=== PATIENT | female | born 1935 | race African-American/Black ===

== ENCOUNTER 2017-02-06 15:25 | Observation (INO) | payer MEDICARE, OTHER ==
[~2017-02-06] VITALS: Ht 172.7 cm; Wt 73.0 kg
[~2017-02-06 15:25] MED LIST: CARV12.545 PO; FLUT10SP INH; FURO40TA5 PO; LOSA50TA20 PO; SITA100T6 PO
[2017-02-06] MEDS ORDERED: FUROSEMIDE 40MG/4ML VIAL IV STA (17:21)
[2017-02-06 18:02] LABS: BASOPHILS % 1.1 % (0.0-2.0); EOSINOPHILS % 0.8 % (0.0-5.0); HEMATOCRIT. 42.6 % (36.0-48.0); HEMOGLOBIN. 13.9 g/dL (12.0-16.0); LYMPHOCYTES % 22.9 % (20.0-50.0); MEAN CORPUSCULAR HEMOGLOBIN 28.5 pg (28.0-32.0); MEAN CORPUSCULAR VOLUME 87.3 fL (81.0-99.0); MEAN PLATELET VOLUME 9.7 fl (7.4-10.4); MONOCYTES % 11.8 % (2.0-8.0); NEUTROPHILS % 63.4 % (40.0-76.0); PLATELET 140 x1000/uL (130-400); RED BLOOD CELL COUNT 4.89 mill/uL (4.2-5.4); RED CELL DISTRIBUTION WIDTH 16.1 % (11.6-14.6)
[2017-02-06 18:04] LABS: CHLORIDE 106 mEq/L (98-107)
[2017-02-06 18:05] LABS: INR 1.3; PROTHROMBIN TIME 13.9 sec
[2017-02-06 18:07] LABS: CARBON DIOXIDE 27 mEq/L (21-32)
[2017-02-06 18:15] LABS: TROPONIN I 0.06 ng/mL (0.00-0.04)
[2017-02-06] MEDS ORDERED: LEVOFLOXACIN 750MG PREMIX 150 ML IV ONE (18:30)
[2017-02-06 19:15] LABS: CLARITY URINE CLEAR (CLEAR); COLOR URINE DARK YELLOW (YELLOW); GLUCOSE URINE NEGATIVE (NEGATIVE); KETONES URINE NEGATIVE (NEGATIVE); LEUKOCYTE ESTERASE URINE NEGATIVE (NEGATIVE); NITRITE URINE NEGATIVE (NEGATIVE); OCCULT BLOOD URINE NEGATIVE (NEGATIVE); PH URINE 6.5 (4.5-8.0); PROTEIN URINE 2+ (NEGATIVE); SPECIFIC GRAVITY URINE 1.016 (1.005-1.030)
[2017-02-06] MEDS ORDERED: SPIR25TA4 PO (22:19)
[2017-02-06] MEDS ORDERED: ISOS1TAB PO (22:19)
[2017-02-06] MEDS ORDERED: ROSU20TA PO (22:19)
[2017-02-06] MEDS ORDERED: SACU1TAB7 PO (22:19)
[2017-02-06 22:20] VITALS: BP 119/83
[2017-02-06 22:33] VITALS: BP 119/83
[2017-02-06] MEDS ORDERED: POTASSIUM CHLORIDE 20MEQ TABLET SR PO NR (23:30)
[2017-02-06] MEDS ORDERED: ACETAMINOPHEN 325MG TABLET PO PRN (23:30)
[2017-02-06] MEDS ORDERED: TEMAZEPAM 15MG CAPSULE PO PRN (23:30)
[2017-02-07 00:05] VITALS: BP 127/80
[2017-02-07 04:00] VITALS: BP 123/84
[2017-02-07] MEDS ORDERED: FUROSEMIDE 40MG/4ML VIAL IVP SCH (06:30)
[2017-02-07 06:33] LABS: BASOPHILS % 1.2 % (0.0-2.0); EOSINOPHILS % 0.8 % (0.0-5.0); HEMATOCRIT. 42.3 % (36.0-48.0); LYMPHOCYTES % 19.3 % (20.0-50.0); MEAN CORPUSCULAR HEMOGLOBIN 28.8 pg (28.0-32.0); MEAN CORPUSCULAR VOLUME 86.8 fL (81.0-99.0); MEAN PLATELET VOLUME 9.9 fl (7.4-10.4); MONOCYTES % 10.5 % (2.0-8.0); NEUTROPHILS % 68.2 % (40.0-76.0); PLATELET 159 x1000/uL (130-400); RED BLOOD CELL COUNT 4.87 mill/uL (4.2-5.4); RED CELL DISTRIBUTION WIDTH 16.4 % (11.6-14.6)
[2017-02-07 08:00] VITALS: BP_SYST 111; BP_SYST 117; BP_DIAS 70; BP_DIAS 77
[2017-02-07] MEDS: SPIRONOLACTONE 25MG TABLET PO SCH (08:30)
[2017-02-07] MEDS: LINAGLIPTIN 5MG TABLET PO SCH (08:31)
[2017-02-07] MEDS: ENOXAPARIN 30MG/0.3ML SYR SUBCUT SCH (08:33)
[2017-02-07] MEDS ORDERED: MEDICATION NOT ON FORMULARY EA (Sitagliptin Phosphate (Januvia) 100 MG) PO SCH (09:00)
[2017-02-07] MEDS ORDERED: MEDICATION NOT ON FORMULARY EA (Rosuvastatin Calcium (Crestor) 20 MG) PO SCH (09:00)
[2017-02-07] MEDS: CARVEDILOL 12.5MG TABLET PO SCH ×2 (10:50→21:21)
[2017-02-07] MEDS: ISOSORB DINIT/HYDRALAZINE HCL 20/37.5MG TABLET PO SCH ×2 (10:51→21:21)
[2017-02-07 12:00] VITALS: BP 107/69
[2017-02-07] MEDS: FUROSEMIDE 40MG/4ML VIAL IVP SCH (17:59)
[2017-02-07 20:00] VITALS: BP 124/88
[2017-02-07] MEDS ORDERED: ATORVASTATIN CALCIUM 40MG TABLET PO SCH (21:00)
[2017-02-07] MEDS: BUDESONIDE 0.5MG/2ML NEB HHN SCH (21:45)
[2017-02-08] VITALS: BP 108/91
[2017-02-08 04:00] VITALS: BP 109/67
[2017-02-08] MEDS: FUROSEMIDE 40MG/4ML VIAL IVP SCH (06:12)
[2017-02-08 08:00] VITALS: BP 106/78
[2017-02-08] MEDS: SPIRONOLACTONE 25MG TABLET PO SCH (08:27)
[2017-02-08] MEDS: CARVEDILOL 12.5MG TABLET PO SCH (08:28)
[2017-02-08] MEDS: ISOSORB DINIT/HYDRALAZINE HCL 20/37.5MG TABLET PO SCH (08:29)
[2017-02-08] MEDS: BUDESONIDE 0.5MG/2ML NEB HHN SCH (08:36)
[2017-02-08] MEDS: LINAGLIPTIN 5MG TABLET PO SCH (08:56)
[2017-02-08] MEDS: ENOXAPARIN 30MG/0.3ML SYR SUBCUT SCH (08:57)
[2017-02-08 12:00] VITALS: BP 115/89
[2017-02-08] MEDS ORDERED: POTASSIUM CHLORIDE 20MEQ TABLET SR PO NR (13:00)
[2017-02-08 15:16] VITALS: BP 115/89
== END 2017-02-08 16:05 | disposition home or self-care (01) ==
LOC: ER 18:59 → 7WST 19:00 → INTOOBSV 19:00
PROVIDERS: ADMIT Internal Medicine; ATTEND Internal Medicine
DX: I50.23 Acute on chronic systolic (congestive) heart failure (principal); E11.22 Type 2 diabetes mellitus with diabetic chronic kidney disease; I13.0 Hypertensive heart and chronic kidney disease with heart failure and stage 1 through stage 4 chronic kidney disease, or unspecified chronic kidney disease; N18.9 Chronic kidney disease, unspecified; I42.9 Cardiomyopathy, unspecified
CPT/HCPCS: 36415; 71010; 80048; 80053; 80061; 81001; 83605; 83690; 83735; 83880; 84484; 85025; 85610; 87040; 87086; 93005; 94640; 94664; 96365; 96372; 96375; 96376; 99285; G0378; J1650; J1940; J1956; J7626

== ENCOUNTER 2018-11-07 19:57 | Inpatient (IN) | payer OTHER ==
[~2018-11-07] VITALS: Ht 167.6 cm; Wt 92.5 kg
[~2018-11-07 19:57] MED LIST changes: +ISOS1TAB PO; +ROSU20TA PO; +SACU1TAB7 PO; +SITA100T11 PO; -SITA100T6 PO; +SPIR25TA6 PO
[2018-11-07] MEDS ORDERED: SODIUM CHLORIDE 0.9% 1,000 ML IV ONE ×2 (20:13→21:45)
[2018-11-07] MEDS ORDERED: PIPERACILLIN/TAZ 3.375G PREMIX 50 ML IV ONE (22:00)
[2018-11-07] MEDS ORDERED: SODIUM CHLORIDE 0.9% 100 ML IV ONE (22:00)
[2018-11-07] MEDS ORDERED: VANCOMYCIN 1 G PREMIX 200 ML IV ONE (22:00)
[2018-11-07 22:04] LABS: CHLORIDE 105 mEq/L (98-107); HEMATOCRIT. 37.6 % (36.0-48.0); HEMOGLOBIN. 11.8 g/dL (12.0-16.0); MEAN CORPUSCULAR HEMOGLOBIN 26.1 pg (28.0-32.0); MEAN CORPUSCULAR VOLUME 82.9 fL (81.0-99.0); MEAN PLATELET VOLUME 9.5 fl (7.4-10.4); PLATELET 150 x1000/uL (130-400); RED BLOOD CELL COUNT 4.54 mill/uL (4.2-5.4); RED CELL DISTRIBUTION WIDTH 20.9 % (11.6-14.6)
[2018-11-07 22:06] LABS: INR 1.3; PROTHROMBIN TIME 12.7 sec (9.1-11.1)
[2018-11-07 22:32] LABS: PLATELET ESTIMATE NORMAL
[2018-11-07] MEDS ORDERED: ASPIRIN 325MG EC TABLET PO ONE (23:00)
[2018-11-07] MEDS ORDERED: DOBUTAMINE HCL IN DEXTROSE 5 % 250 ML IV STA (23:27)
[2018-11-07] MEDS ORDERED: DOBUTAMINE 250MG PREMIX 250 ML IV ONE (23:45)
[2018-11-07] MEDS ORDERED: ENOXAPARIN 80MG/0.8ML SYR SUBCUT NR (23:45)
[2018-11-08] VITALS (78 sets, daily range): BP systolic 30–204; BP diastolic 0–104
[2018-11-08 01:00] LABS: CLARITY URINE TURBID (CLEAR); COLOR URINE DARK YELLOW (YELLOW); KETONES URINE 1+ (NEGATIVE); LEUKOCYTE ESTERASE URINE TRACE (NEGATIVE); NITRITE URINE NEGATIVE (NEGATIVE); OCCULT BLOOD URINE NEGATIVE (NEGATIVE); PROTEIN URINE 2+ (NEGATIVE); SPECIFIC GRAVITY URINE 1.021 (1.005-1.030)
[2018-11-08] MEDS ORDERED: DOBUTAMINE 250MG PREMIX 250 ML IV ONE ×2 (01:45→04:45)
[2018-11-08] MEDS ORDERED: LEVOFLOXACIN 500MG PREMIX 100 ML IV SCH ×3 (03:15→04:00)
[2018-11-08] MEDS ORDERED: IPRATROPIUM/ALBUTEROL 0.5-3(2.5)MG/3ML NEB INH PRN (03:15)
[2018-11-08] MEDS ORDERED: SODIUM CHLORIDE 0.9% 1,000 ML IV ONE (03:15)
[2018-11-08] MEDS ORDERED: CLOPIDOGREL 75MG TABLET PO SCH (03:15)
[2018-11-08] MEDS ORDERED: ENOXAPARIN 40MG/0.4ML SYR SUBCUT SCH (03:15)
[2018-11-08] MEDS ORDERED: ACETAMINOPHEN 325MG TABLET PO PRN ×2 (03:15→09:00)
[2018-11-08] MEDS ORDERED: ONDANSETRON HCL 4MG/2ML INJ IV PRN ×2 (03:15→09:00)
[2018-11-08] MEDS ORDERED: DOBUTAMINE 250MG PREMIX 250 ML IV SCH (04:45)
[2018-11-08 05:37] LABS: HEMATOCRIT. 33.5 % (36.0-48.0); HEMOGLOBIN. 10.7 g/dL (12.0-16.0); MEAN CORPUSCULAR HEMOGLOBIN 26.1 pg (28.0-32.0); MEAN CORPUSCULAR VOLUME 82.1 fL (81.0-99.0); MEAN PLATELET VOLUME 9.9 fl (7.4-10.4); PLATELET 136 x1000/uL (130-400); RED BLOOD CELL COUNT 4.08 mill/uL (4.2-5.4); RED CELL DISTRIBUTION WIDTH 19.7 % (11.6-14.6)
[2018-11-08 06:34] LABS: PLATELET ESTIMATE NORMAL
[2018-11-08] MEDS ORDERED: INSULIN REGULAR (HUMULIN R) 300UNITS/3ML SUBCUT ONE (07:09)
[2018-11-08 07:14] LABS: BG BASE EXCESS -6.5 mmol/L (-2.0-2.0); BG CARBOXYHEMOGLOBIN 0.3 % (0.5-1.5); BG DEOXYHEMOGLOBIN 3.4 % (0.0-5.0); BG FRACTION INSPIRED OXYGEN 38; BG METHEMOGLOBIN 0.4 % (0.0-1.5); BG OXYGEN SATURATION 96.6 % (92.0-98.5); BG OXYHEMOGLOBIN 95.9 % (94.0-97.0); BG PCO2 32.3 mmHg (35.0-45.0); BG PH 7.363 (7.350-7.450); BG PO2 101.7 mmHg (75.0-100.0); BG SAMPLE SITE RIGHT BRACHIAL; BG TOTAL HEMOGLOBIN 11.5 g/dL (12.0-18.0); BG VENT MODE NASAL CANNULA
[2018-11-08] MEDS ORDERED: IOHEXOL-300 100 ML BOTTLE ONE (07:14)
[2018-11-08] MEDS ORDERED: IODIXANOL 320MG/ML 100 ML BOTTLE IV ONE (07:14)
[2018-11-08] MEDS ORDERED: LIDOCAINE HCL 1% 20ML VIAL (Pyxis) INJ ONE ×3 (07:14→11:45)
[2018-11-08] MEDS ORDERED: INSULIN REGULAR (HUMULIN R) UD 100 UNITS/ML SYR SUBCUT NR (07:31)
[2018-11-08] MEDS ORDERED: DOPAMINE 400MG/250ML PREMIX 250 ML IV ONE ×2 (07:38→10:25)
[2018-11-08] MEDS ORDERED: SODIUM BICARBONATE 8.4% 1 MEQ/ML 50ML SYR IV ONE (08:03)
[2018-11-08] MEDS ORDERED: PHENYLEPHRINE 10 MG in DEXTROSE 5% WATER 250 ML IV PRN (08:15)
[2018-11-08] MEDS ORDERED: CEFAZOLIN 1000MG PREMIX 50 ML IV ONE (08:56)
[2018-11-08] MEDS ORDERED: CLOPIDOGREL 75MG TABLET ONE (09:00)
[2018-11-08] MEDS ORDERED: ATROPINE SULFATE 1MG/10ML SYR IV PRN (09:00)
[2018-11-08] MEDS ORDERED: HEPARIN 25,000 UNITS PREMIX 500 ML IV SCH (09:30)
[2018-11-08] MEDS ORDERED: HEPARIN 5000 UNITS/ML VIAL IV PRN ×2 (11:00)
[2018-11-08] MEDS ORDERED: HEPARIN 25,000 UNITS PREMIX 500 ML IV PRN ×2 (11:15→12:00)
[2018-11-08] MEDS ORDERED: HEPARIN 5000 UNITS/ML VIAL IV SCH (11:15)
[2018-11-08] MEDS: PHENYLEPHRINE 40 MG in DEXTROSE 5% WATER 250 ML IV PRN ×2 (11:43→15:26)
[2018-11-08] MEDS ORDERED: INSULIN GLARGINE UD 100 UNITS/ML SYR SUBCUT NR (11:45)
[2018-11-08] MEDS ORDERED: DOPAMINE 400MG/250ML PREMIX 250 ML IV PRN ×3 (12:15→16:15)
[2018-11-08] MEDS: INSULIN LISPRO 100 UNITS/ML SUBCUT SCH ×3 (12:25→21:00)
[2018-11-08] MEDS: BLOOD SUGAR DIAGNOSTIC STRIP TEST SCH ×3 (12:26→21:43)
[2018-11-08] MEDS ORDERED: PIPERACILLIN/TAZ 2.25G PREMIX 50 ML IV SCH (12:30)
[2018-11-08] MEDS: LINAGLIPTIN 5MG TABLET PO SCH (13:00)
[2018-11-08] MEDS: PANTOPRAZOLE SODIUM 40 MG/VIAL IV SCH (14:00)
[2018-11-08] MEDS ORDERED: PHENYLEPHRINE 100MCG/ML 10ML VIAL (CATH LAB) IV ONE (14:14)
[2018-11-08] MEDS ORDERED: HEPARIN SODIUM 1,000 UNIT/1ML VIAL IV ONE (14:14)
[2018-11-08] MEDS ORDERED: AZITHROMYCIN 500 MG TABLET PO SCH (15:00)
[2018-11-08 15:21] LABS: HEMATOCRIT 32.8 % (36.0-48.0); HEMOGLOBIN 10.8 g/dL (12.0-16.0); MEAN CORPUSCULAR HEMOGLOBIN 26.4 pg (28.0-32.0); MEAN CORPUSCULAR VOLUME 80.2 fL (81.0-99.0); PLATELET 136 x1000/uL (130-400); RED BLOOD CELL COUNT 4.09 mill/uL (4.2-5.4); RED CELL DISTRIBUTION WIDTH 19.8 % (11.6-14.6)
[2018-11-08] MEDS: DOPAMINE 400MG/250ML PREMIX 250 ML IV PRN ×2 (18:39→23:08)
[2018-11-08 19:03] LABS: D-DIMER 7.92 mg/L FEU (<0.50); INR 1.4; PARTIAL THROMBOPLASTIN TIME 36.4 sec (23.4-31.0)
[2018-11-08] MEDS: CEFEPIME 1,000 MG in DEXTROSE 5% WATER 50 ML IV SCH (19:10)
[2018-11-08 20:22] LABS: HEMATOCRIT. 34.5 % (36.0-48.0); HEMOGLOBIN. 11.2 g/dL (12.0-16.0); MEAN CORPUSCULAR HEMOGLOBIN 26.1 pg (28.0-32.0); MEAN CORPUSCULAR VOLUME 80.6 fL (81.0-99.0); MEAN PLATELET VOLUME 9.4 fl (7.4-10.4); PLATELET 137 x1000/uL (130-400); RED BLOOD CELL COUNT 4.27 mill/uL (4.2-5.4); RED CELL DISTRIBUTION WIDTH 19.9 % (11.6-14.6)
[2018-11-08] MEDS: AZITHROMYCIN 500 MG in DEXT 5% WATER 250 ML IV SCH (21:37)
[2018-11-08] MEDS: ATORVASTATIN CALCIUM 40MG TABLET PO SCH (21:37)
[2018-11-08 21:41] LABS: PLATELET ESTIMATE NORMAL
[2018-11-08 22:46] LABS: BG BASE EXCESS -6.6 mmol/L (-2.0-2.0); BG CARBOXYHEMOGLOBIN 0.6 % (0.5-1.5); BG DEOXYHEMOGLOBIN 2.9 % (0.0-5.0); BG FRACTION INSPIRED OXYGEN 100; BG HCO3 ACT 16.4 mmol/L (22.0-26.0); BG METHEMOGLOBIN 0.1 % (0.0-1.5); BG OXYGEN SATURATION 97.1 % (92.0-98.5); BG OXYHEMOGLOBIN 96.4 % (94.0-97.0); BG PCO2 25.9 mmHg (35.0-45.0); BG PO2 98.1 mmHg (75.0-100.0); BG SAMPLE SITE A-LINE; BG TOTAL HEMOGLOBIN 11.9 g/dL (12.0-18.0); BG VENT MODE AMBU BAG
[2018-11-08] MEDS ORDERED: LIDOCAINE HCL 2% 5ML SYRINGE IV ONE (23:30)
[2018-11-08] MEDS ORDERED: ETOMIDATE 2MG/ML 10ML VIAL IV ONE (23:30)
[2018-11-08] MEDS ORDERED: NOREPINEPHRINE 4MG/250ML PMX 250 ML IV ONE (23:30)
[2018-11-08] MEDS ORDERED: DEXTROSE 50% WATER 50ML SYRINGE IV ONE (23:30)
[2018-11-08] MEDS ORDERED: SODIUM BICARBONATE 7.5% 0.9 MEQ/ML 50ML SYR IV ONE (23:30)
[2018-11-08] MEDS ORDERED: EPINEPHRINE 0.1MG/ML (1:10,000) 10ML SYR ONE (23:30)
[2018-11-08] MEDS ORDERED: ATROPINE SULFATE 1MG/10ML SYR ONE (23:30)
[2018-11-08] MEDS ORDERED: SUCCINYLCHOLINE CHLORIDE 200MG/10ML IV ONE (23:30)
[2018-11-08 23:35] LABS: BG BASE EXCESS -13.9 mmol/L (-2.0-2.0); BG DEOXYHEMOGLOBIN 0.6 % (0.0-5.0); BG FRACTION INSPIRED OXYGEN 100; BG HCO3 ACT 10.1 mmol/L (22.0-26.0); BG METHEMOGLOBIN 0.1 % (0.0-1.5); BG OXYGEN SATURATION 99.4 % (92.0-98.5); BG OXYHEMOGLOBIN 99.3 % (94.0-97.0); BG PCO2 20.3 mmHg (35.0-45.0); BG PH 7.316 (7.350-7.450); BG PO2 276.5 mmHg (75.0-100.0); BG SAMPLE SITE A-LINE; BG TIDAL VOLUME(mL) 550 mL; BG TOTAL HEMOGLOBIN 12.1 g/dL (12.0-18.0); BG VENT MODE VENT - A/C; BG VENT RATE 12 set
[2018-11-08] MEDS: NOREPINEPHRINE 32 MG in DEXT 5% WATER 468 ML IV PRN (23:37)
[2018-11-08] MEDS: PHENYLEPHRINE 40 MG in DEXT 5% WATER 246 ML IV PRN (23:43)
[2018-11-08] MEDS: EPINEPHRINE 1 MG in SODIUM CHLORIDE 0.9% 249 ML IV PRN (23:44)
[2018-11-09] VITALS (100 sets, daily range): BP systolic 45–291; BP diastolic 4–174
[2018-11-09] MEDS ORDERED: SODIUM BICARBONATE 8.4% 1 MEQ/ML 50ML SYR IV SCH ×2 (00:15→03:15)
[2018-11-09] MEDS: EPINEPHRINE 1 MG in SODIUM CHLORIDE 0.9% 249 ML IV PRN (01:07)
[2018-11-09] MEDS: DOPAMINE 400MG/250ML PREMIX 250 ML IV PRN ×2 (01:08→04:10)
[2018-11-09] MEDS: PHENYLEPHRINE 40 MG in DEXT 5% WATER 246 ML IV PRN (02:39)
[2018-11-09 03:02] LABS: BG BASE EXCESS -13.8 mmol/L (-2.0-2.0); BG CARBOXYHEMOGLOBIN 0.1 % (0.5-1.5); BG DEOXYHEMOGLOBIN 0.4 % (0.0-5.0); BG FRACTION INSPIRED OXYGEN 100; BG HCO3 ACT 13.3 mmol/L (22.0-26.0); BG METHEMOGLOBIN 0.3 % (0.0-1.5); BG OXYGEN SATURATION 99.6 % (92.0-98.5); BG OXYHEMOGLOBIN 99.2 % (94.0-97.0); BG PCO2 35.1 mmHg (35.0-45.0); BG PH 7.197 (7.350-7.450); BG PO2 403.3 mmHg (75.0-100.0); BG SAMPLE SITE A-LINE; BG TIDAL VOLUME(mL) 550 mL; BG VENT MODE VENT - A/C; BG VENT RATE 12 set
[2018-11-09 03:23] LABS: CHLORIDE 99 mEq/L (98-107)
[2018-11-09] MEDS: SODIUM BICARBONATE 8.4% 1 MEQ/ML 50ML SYR IV SCH ×4 (05:51→23:27)
[2018-11-09] MEDS: PHENYLEPHRINE 80 MG in DEXT 5% WATER 492 ML IV PRN ×2 (06:19→23:12)
[2018-11-09 06:30] LABS: BASOPHILS % 0.2 % (0.0-2.0); HEMATOCRIT. 36.5 % (36.0-48.0); HEMOGLOBIN. 11.9 g/dL (12.0-16.0); LYMPHOCYTES % 7.7 % (20.0-50.0); MEAN CORPUSCULAR HEMOGLOBIN 26.2 pg (28.0-32.0); MEAN CORPUSCULAR VOLUME 80.5 fL (81.0-99.0); MEAN PLATELET VOLUME 9.5 fl (7.4-10.4); MONOCYTES % 6.4 % (2.0-8.0); NEUTROPHILS % 85.7 % (40.0-76.0); PLATELET 113 x1000/uL (130-400); RED BLOOD CELL COUNT 4.54 mill/uL (4.2-5.4)
[2018-11-09 07:01] LABS: PHOSPHORUS 5.9 mg/dL (2.5-4.9)
[2018-11-09] MEDS: BLOOD SUGAR DIAGNOSTIC STRIP TEST SCH ×4 (07:50→23:22)
[2018-11-09] MEDS: INSULIN LISPRO 100 UNITS/ML SUBCUT SCH ×4 (08:20→23:30)
[2018-11-09] MEDS: LINAGLIPTIN 5MG TABLET PO SCH (09:00)
[2018-11-09 09:17] LABS: BG BASE EXCESS -2.4 mmol/L (-2.0-2.0); BG CARBOXYHEMOGLOBIN 0.2 % (0.5-1.5); BG DEOXYHEMOGLOBIN 0.8 % (0.0-5.0); BG FRACTION INSPIRED OXYGEN 80; BG METHEMOGLOBIN 0.2 % (0.0-1.5); BG OXYGEN SATURATION 99.2 % (92.0-98.5); BG OXYHEMOGLOBIN 98.8 % (94.0-97.0); BG PCO2 27.2 mmHg (35.0-45.0); BG PH 7.484 (7.350-7.450); BG PO2 298.2 mmHg (75.0-100.0); BG SAMPLE SITE A-LINE; BG TIDAL VOLUME(mL) 550 mL; BG TOTAL HEMOGLOBIN 11.1 g/dL (12.0-18.0); BG VENT MODE VENT - A/C; BG VENT RATE 12 set
[2018-11-09] MEDS: PANTOPRAZOLE SODIUM 40 MG/VIAL IV SCH (11:48)
[2018-11-09] MEDS: DOPAMINE 800MG PREMIX (DOUBLE) 250 ML IV PRN (11:50)
[2018-11-09] MEDS: MIDAZOLAM HCL 2 MG/2 ML VIAL IV PRN ×5 (11:51→22:28)
[2018-11-09 12:42] LABS: INR 1.7; PROTHROMBIN TIME 17.4 sec (9.1-11.1)
[2018-11-09] MEDS ORDERED: INSULIN GLARGINE UD 100 UNITS/ML SYR SUBCUT NR (13:30)
[2018-11-09] MEDS: CEFEPIME 1,000 MG in DEXTROSE 5% WATER 50 ML IV SCH (16:48)
[2018-11-09] MEDS: ASPIRIN 325MG TABLET PO SCH (16:53)
[2018-11-09] MEDS: CLOPIDOGREL 75MG TABLET PO SCH (16:53)
[2018-11-09 20:20] LABS: BG BASE EXCESS -1.7 mmol/L (-2.0-2.0); BG CARBOXYHEMOGLOBIN 0.3 % (0.5-1.5); BG DEOXYHEMOGLOBIN 3.9 % (0.0-5.0); BG FRACTION INSPIRED OXYGEN 50; BG HCO3 ACT 20.9 mmol/L (22.0-26.0); BG METHEMOGLOBIN 0.3 % (0.0-1.5); BG OXYGEN SATURATION 96.1 % (92.0-98.5); BG OXYHEMOGLOBIN 95.5 % (94.0-97.0); BG PH 7.475 (7.350-7.450); BG PO2 88.4 mmHg (75.0-100.0); BG SAMPLE SITE A-LINE; BG TIDAL VOLUME(mL) 550 mL; BG TOTAL HEMOGLOBIN 11.9 g/dL (12.0-18.0); BG VENT MODE VENT - A/C; BG VENT RATE 12 set
[2018-11-09] MEDS: ATORVASTATIN CALCIUM 40MG TABLET PO SCH (21:30)
[2018-11-09] MEDS: AZITHROMYCIN 500 MG in DEXT 5% WATER 250 ML IV SCH (21:30)
[2018-11-10] VITALS (92 sets, daily range): BP systolic 81–191; BP diastolic 15–93
[2018-11-10] MEDS: MIDAZOLAM HCL 2 MG/2 ML VIAL IV PRN (01:15)
[2018-11-10] MEDS ORDERED: LEVOFLOXACIN 250MG PREMIX 50 ML IV SCH (04:00)
[2018-11-10 04:56] LABS: HEMATOCRIT. 32.3 % (36.0-48.0); HEMOGLOBIN. 10.7 g/dL (12.0-16.0); MEAN CORPUSCULAR HEMOGLOBIN 26.4 pg (28.0-32.0); MEAN CORPUSCULAR VOLUME 79.4 fL (81.0-99.0); MEAN PLATELET VOLUME 9.7 fl (7.4-10.4); PLATELET 90 x1000/uL (130-400); RED BLOOD CELL COUNT 4.07 mill/uL (4.2-5.4); RED CELL DISTRIBUTION WIDTH 19.4 % (11.6-14.6)
[2018-11-10] MEDS: BLOOD SUGAR DIAGNOSTIC STRIP TEST SCH ×4 (05:05→23:55)
[2018-11-10] MEDS: SODIUM BICARBONATE 8.4% 1 MEQ/ML 50ML SYR IV SCH (05:08)
[2018-11-10] MEDS: INSULIN LISPRO 100 UNITS/ML SUBCUT SCH ×3 (05:09→18:00)
[2018-11-10 05:25] LABS: PHOSPHORUS 3.2 mg/dL (2.5-4.9)
[2018-11-10] MEDS: DOPAMINE 800MG PREMIX (DOUBLE) 250 ML IV PRN (05:48)
[2018-11-10 07:29] LABS: NUCLEATED RED BLOOD CELLS 9 /100 WBC
[2018-11-10 07:30] LABS: PLATELET ESTIMATE DECREASED
[2018-11-10 08:57] LABS: BG BASE EXCESS 3.3 mmol/L (-2.0-2.0); BG CARBOXYHEMOGLOBIN 0.3 % (0.5-1.5); BG DEOXYHEMOGLOBIN 1.5 % (0.0-5.0); BG FRACTION INSPIRED OXYGEN 50; BG HCO3 ACT 25.6 mmol/L (22.0-26.0); BG METHEMOGLOBIN 0.3 % (0.0-1.5); BG OXYGEN SATURATION 98.5 % (92.0-98.5); BG OXYHEMOGLOBIN 97.9 % (94.0-97.0); BG PH 7.534 (7.350-7.450); BG SAMPLE SITE A-LINE; BG TIDAL VOLUME(mL) 550 mL; BG TOTAL HEMOGLOBIN 10.6 g/dL (12.0-18.0); BG VENT MODE VENT - A/C; BG VENT RATE 12 set
[2018-11-10] MEDS: CLOPIDOGREL 75MG TABLET PO SCH (10:45)
[2018-11-10] MEDS: LINAGLIPTIN 5MG TABLET PO SCH (10:45)
[2018-11-10] MEDS: PANTOPRAZOLE SODIUM 40 MG/VIAL IV SCH (10:45)
[2018-11-10] MEDS: ASPIRIN 325MG TABLET PO SCH (10:45)
[2018-11-10] MEDS ORDERED: POTASSIUM CHLORIDE INJ 40 MEQ in DEXT 5% WATER 250 ML IV NR (11:30)
[2018-11-10] MEDS ORDERED: INSULIN GLARGINE UD 100 UNITS/ML SYR SUBCUT NR (13:00)
[2018-11-10] MEDS: CEFEPIME 1,000 MG in DEXTROSE 5% WATER 50 ML IV SCH (17:53)
[2018-11-10] MEDS: PHENYLEPHRINE 80 MG in DEXT 5% WATER 492 ML IV PRN (18:30)
[2018-11-10] MEDS: ATORVASTATIN CALCIUM 40MG TABLET PO SCH (21:08)
[2018-11-10] MEDS: AZITHROMYCIN 500 MG in DEXT 5% WATER 250 ML IV SCH (21:08)
[2018-11-10 23:52] LABS: BG BASE EXCESS -0.5 mmol/L (-2.0-2.0); BG CARBOXYHEMOGLOBIN 0.2 % (0.5-1.5); BG DEOXYHEMOGLOBIN 1.3 % (0.0-5.0); BG FRACTION INSPIRED OXYGEN 45; BG HCO3 ACT 21.8 mmol/L (22.0-26.0); BG METHEMOGLOBIN 0.3 % (0.0-1.5); BG OXYGEN SATURATION 98.7 % (92.0-98.5); BG OXYHEMOGLOBIN 98.2 % (94.0-97.0); BG PCO2 28.9 mmHg (35.0-45.0); BG PH 7.496 (7.350-7.450); BG PO2 148.1 mmHg (75.0-100.0); BG SAMPLE SITE A-LINE; BG TIDAL VOLUME(mL) 550 mL; BG TOTAL HEMOGLOBIN 11.9 g/dL (12.0-18.0); BG VENT MODE VENT - A/C; BG VENT RATE 12 set
[2018-11-11] VITALS (94 sets, daily range): BP systolic 120–161; BP diastolic 19–47
[2018-11-11] MEDS: BLOOD SUGAR DIAGNOSTIC STRIP TEST SCH ×4 (05:13→23:58)
[2018-11-11] MEDS: INSULIN LISPRO 100 UNITS/ML SUBCUT SCH ×5 (05:13→23:41)
[2018-11-11 05:56] LABS: HEMATOCRIT. 32.8 % (36.0-48.0); HEMOGLOBIN. 10.9 g/dL (12.0-16.0); MEAN CORPUSCULAR HEMOGLOBIN 26.4 pg (28.0-32.0); MEAN CORPUSCULAR VOLUME 79.2 fL (81.0-99.0); MEAN PLATELET VOLUME 10.2 fl (7.4-10.4); PLATELET 82 x1000/uL (130-400); RED BLOOD CELL COUNT 4.14 mill/uL (4.2-5.4); RED CELL DISTRIBUTION WIDTH 19.8 % (11.6-14.6)
[2018-11-11 06:09] LABS: PHOSPHORUS 2.2 mg/dL (2.5-4.9)
[2018-11-11] MEDS: DOPAMINE 800MG PREMIX (DOUBLE) 250 ML IV PRN (06:51)
[2018-11-11 07:33] LABS: BG BASE EXCESS 0.5 mmol/L (-2.0-2.0); BG CARBOXYHEMOGLOBIN 0.3 % (0.5-1.5); BG DEOXYHEMOGLOBIN 1.6 % (0.0-5.0); BG FRACTION INSPIRED OXYGEN 45; BG HCO3 ACT 22.8 mmol/L (22.0-26.0); BG METHEMOGLOBIN 0.3 % (0.0-1.5); BG OXYGEN SATURATION 98.4 % (92.0-98.5); BG OXYHEMOGLOBIN 97.8 % (94.0-97.0); BG PCO2 29.2 mmHg (35.0-45.0); BG PO2 136.7 mmHg (75.0-100.0); BG SAMPLE SITE A-LINE; BG TIDAL VOLUME(mL) 550 mL; BG TOTAL HEMOGLOBIN 11.2 g/dL (12.0-18.0); BG VENT MODE VENT - A/C; BG VENT RATE 12 set
[2018-11-11] MEDS: MIDAZOLAM HCL 2 MG/2 ML VIAL IV PRN ×2 (08:26→22:11)
[2018-11-11 08:51] LABS: NUCLEATED RED BLOOD CELLS 4 /100 WBC; PLATELET ESTIMATE DECREASED
[2018-11-11] MEDS: PANTOPRAZOLE SODIUM 40 MG/VIAL IV SCH (09:27)
[2018-11-11] MEDS: ASPIRIN 325MG TABLET PO SCH (09:28)
[2018-11-11] MEDS: CLOPIDOGREL 75MG TABLET PO SCH (09:28)
[2018-11-11] MEDS ORDERED: POTASSIUM-SODIUM PHOSPHATE POWDER PACKET PO ONE (09:30)
[2018-11-11] MEDS: LORAZEPAM 2MG/ML CPJ IV PRN ×3 (10:09→20:03)
[2018-11-11] MEDS: INSULIN GLARGINE UD 100 UNITS/ML SYR SUBCUT SCH (12:15)
[2018-11-11] MEDS: CEFEPIME 1,000 MG in DEXTROSE 5% WATER 50 ML IV SCH (15:06)
[2018-11-11] MEDS: ATORVASTATIN CALCIUM 40MG TABLET PO SCH (20:03)
[2018-11-11] MEDS: AZITHROMYCIN 500 MG in DEXT 5% WATER 250 ML IV SCH (21:17)
[2018-11-12] VITALS (96 sets, daily range): BP systolic 110–161; BP diastolic 17–41
[2018-11-12] MEDS: NOREPINEPHRINE 32 MG in DEXT 5% WATER 468 ML IV PRN (01:58)
[2018-11-12] MEDS: PHENYLEPHRINE 80 MG in DEXT 5% WATER 492 ML IV PRN (01:58)
[2018-11-12] MEDS: DOPAMINE 800MG PREMIX (DOUBLE) 250 ML IV PRN ×2 (04:06→23:08)
[2018-11-12 05:04] LABS: HEMATOCRIT. 32.5 % (36.0-48.0); HEMOGLOBIN. 10.8 g/dL (12.0-16.0); MEAN CORPUSCULAR HEMOGLOBIN 26.2 pg (28.0-32.0); MEAN CORPUSCULAR VOLUME 78.6 fL (81.0-99.0); MEAN PLATELET VOLUME 9.3 fl (7.4-10.4); PLATELET 61 x1000/uL (130-400); RED BLOOD CELL COUNT 4.13 mill/uL (4.2-5.4); RED CELL DISTRIBUTION WIDTH 19.9 % (11.6-14.6)
[2018-11-12 05:19] LABS: PHOSPHORUS 3.9 mg/dL (2.5-4.9)
[2018-11-12] MEDS: INSULIN LISPRO 100 UNITS/ML SUBCUT SCH ×4 (06:00→23:08)
[2018-11-12] MEDS: BLOOD SUGAR DIAGNOSTIC STRIP TEST SCH ×4 (06:54→23:00)
[2018-11-12 08:36] LABS: BG BASE EXCESS -0.2 mmol/L (-2.0-2.0); BG CARBOXYHEMOGLOBIN 0.2 % (0.5-1.5); BG DEOXYHEMOGLOBIN 1.5 % (0.0-5.0); BG FRACTION INSPIRED OXYGEN 40; BG HCO3 ACT 22.5 mmol/L (22.0-26.0); BG METHEMOGLOBIN 0.2 % (0.0-1.5); BG OXYGEN SATURATION 98.5 % (92.0-98.5); BG OXYHEMOGLOBIN 98.1 % (94.0-97.0); BG PCO2 30.6 mmHg (35.0-45.0); BG PH 7.485 (7.350-7.450); BG PO2 136.3 mmHg (75.0-100.0); BG SAMPLE SITE A-LINE; BG TIDAL VOLUME(mL) 500 mL; BG VENT MODE VENT - A/C; BG VENT RATE 12 set
[2018-11-12] MEDS: PANTOPRAZOLE SODIUM 40 MG/VIAL IV SCH (09:30)
[2018-11-12] MEDS: ASPIRIN 325MG TABLET PO SCH (09:30)
[2018-11-12] MEDS: CLOPIDOGREL 75MG TABLET PO SCH (09:30)
[2018-11-12] MEDS: INSULIN GLARGINE UD 100 UNITS/ML SYR SUBCUT SCH (09:31)
[2018-11-12] MEDS ORDERED: CALCIUM GLUCONATE 1,000 MG in DEXT 5% WATER 90 ML IV NR (10:00)
[2018-11-12] MEDS ORDERED: PHENYLEPHRINE 80 MG in DEXT 5% WATER 492 ML IV PRN (10:54)
[2018-11-12] MEDS ORDERED: DOPAMINE 800MG PREMIX (DOUBLE) 250 ML IV PRN (11:00)
[2018-11-12 11:50] LABS: NUCLEATED RED BLOOD CELLS 2 /100 WBC
[2018-11-12 11:52] LABS: PLATELET ESTIMATE DECREASED
[2018-11-12] MEDS: CEFEPIME 1,000 MG in DEXTROSE 5% WATER 50 ML IV SCH (14:56)
[2018-11-12] MEDS: ATORVASTATIN CALCIUM 40MG TABLET PO SCH (21:27)
[2018-11-12] MEDS: AZITHROMYCIN 500 MG in DEXT 5% WATER 250 ML IV SCH (21:28)
[2018-11-12] MEDS: IPRATROPIUM/ALBUTEROL 0.5-3(2.5)MG/3ML NEB HHN PRN (23:34)
[2018-11-13] VITALS (141 sets, daily range): BP systolic 85–153; BP diastolic 9–75
[2018-11-13] MEDS: INSULIN LISPRO 100 UNITS/ML SUBCUT SCH ×4 (05:24→23:32)
[2018-11-13] MEDS: BLOOD SUGAR DIAGNOSTIC STRIP TEST SCH ×4 (05:24→23:41)
[2018-11-13 06:32] LABS: BASOPHILS % 0.1 % (0.0-2.0); EOSINOPHILS % 1.3 % (0.0-5.0); HEMATOCRIT. 32.7 % (36.0-48.0); HEMOGLOBIN. 10.9 g/dL (12.0-16.0); LYMPHOCYTES % 7.7 % (20.0-50.0); MEAN CORPUSCULAR HEMOGLOBIN 26.4 pg (28.0-32.0); MEAN CORPUSCULAR VOLUME 79.1 fL (81.0-99.0); MEAN PLATELET VOLUME 10.3 fl (7.4-10.4); MONOCYTES % 9.2 % (2.0-8.0); NEUTROPHILS % 81.7 % (40.0-76.0); PLATELET 68 x1000/uL (130-400); RED BLOOD CELL COUNT 4.13 mill/uL (4.2-5.4); RED CELL DISTRIBUTION WIDTH 20.5 % (11.6-14.6)
[2018-11-13 06:36] LABS: CHLORIDE 107 mEq/L (98-107)
[2018-11-13 06:43] LABS: PHOSPHORUS 4.2 mg/dL (2.5-4.9)
[2018-11-13 08:28] LABS: BG BASE EXCESS -5.8 mmol/L (-2.0-2.0); BG CARBOXYHEMOGLOBIN 0.1 % (0.5-1.5); BG DEOXYHEMOGLOBIN 1.2 % (0.0-5.0); BG FRACTION INSPIRED OXYGEN 45; BG HCO3 ACT 18.2 mmol/L (22.0-26.0); BG METHEMOGLOBIN 0.2 % (0.0-1.5); BG OXYGEN SATURATION 98.8 % (92.0-98.5); BG OXYHEMOGLOBIN 98.5 % (94.0-97.0); BG PCO2 30.8 mmHg (35.0-45.0); BG PO2 161.3 mmHg (75.0-100.0); BG SAMPLE SITE A-LINE; BG TIDAL VOLUME(mL) 500 mL; BG TOTAL HEMOGLOBIN 11.1 g/dL (12.0-18.0); BG VENT MODE VENT - A/C; BG VENT RATE 12 set
[2018-11-13] MEDS ORDERED: CALCIUM GLUCONATE 1,000 MG in DEXT 5% WATER 90 ML IV NR (09:00)
[2018-11-13] MEDS: PANTOPRAZOLE SODIUM 40 MG/VIAL IV SCH (09:51)
[2018-11-13] MEDS ORDERED: MORPHINE SULFATE 4 MG/ML CPJ (NOT FOR IM USE) IV ONE (10:39)
[2018-11-13] MEDS ORDERED: MORPHINE SULFATE 4 MG/ML CPJ (NOT FOR IM USE) IV SCH (11:15)
[2018-11-13] MEDS: CLOPIDOGREL 75MG TABLET PO SCH (12:45)
[2018-11-13] MEDS: ASPIRIN 325MG TABLET PO SCH (12:45)
[2018-11-13] MEDS: INSULIN GLARGINE UD 100 UNITS/ML SYR SUBCUT SCH (12:47)
[2018-11-13] MEDS: CEFEPIME 1,000 MG in DEXTROSE 5% WATER 50 ML IV SCH (15:18)
[2018-11-14] VITALS (64 sets, daily range): BP systolic 35–143; BP diastolic 21–82
[2018-11-14] MEDS: DOPAMINE 800MG PREMIX (DOUBLE) 250 ML IV PRN ×2 (00:17→20:18)
[2018-11-14] MEDS: LORAZEPAM 2MG/ML CPJ IV PRN (05:29)
[2018-11-14 05:50] LABS: BASOPHILS % 0.3 % (0.0-2.0); HEMATOCRIT. 30.8 % (36.0-48.0); HEMOGLOBIN. 10.4 g/dL (12.0-16.0); LYMPHOCYTES % 11.4 % (20.0-50.0); MEAN CORPUSCULAR HEMOGLOBIN 26.5 pg (28.0-32.0); MEAN CORPUSCULAR VOLUME 78.6 fL (81.0-99.0); MEAN PLATELET VOLUME 9.4 fl (7.4-10.4); MONOCYTES % 13.1 % (2.0-8.0); NEUTROPHILS % 74.2 % (40.0-76.0); PLATELET 67 x1000/uL (130-400); RED BLOOD CELL COUNT 3.92 mill/uL (4.2-5.4); RED CELL DISTRIBUTION WIDTH 21.2 % (11.6-14.6)
[2018-11-14] MEDS: INSULIN LISPRO 100 UNITS/ML SUBCUT SCH ×3 (06:00→18:00)
[2018-11-14 06:07] LABS: PHOSPHORUS 5.1 mg/dL (2.5-4.9)
[2018-11-14] MEDS: BLOOD SUGAR DIAGNOSTIC STRIP TEST SCH ×3 (06:21→18:01)
[2018-11-14 07:39] LABS: BG BASE EXCESS -6.4 mmol/L (-2.0-2.0); BG CARBOXYHEMOGLOBIN 0.2 % (0.5-1.5); BG DEOXYHEMOGLOBIN 1.4 % (0.0-5.0); BG FRACTION INSPIRED OXYGEN 45; BG HCO3 ACT 17.6 mmol/L (22.0-26.0); BG METHEMOGLOBIN 0.1 % (0.0-1.5); BG OXYGEN SATURATION 98.6 % (92.0-98.5); BG OXYHEMOGLOBIN 98.3 % (94.0-97.0); BG PCO2 30.3 mmHg (35.0-45.0); BG PH 7.382 (7.350-7.450); BG PO2 143.4 mmHg (75.0-100.0); BG SAMPLE SITE A-LINE; BG TIDAL VOLUME(mL) 500 mL; BG VENT MODE VENT - A/C; BG VENT RATE 12 set
[2018-11-14] MEDS: PANTOPRAZOLE SODIUM 40 MG/VIAL IV SCH (09:28)
[2018-11-14] MEDS: ASPIRIN 325MG TABLET PO SCH (09:28)
[2018-11-14] MEDS: CLOPIDOGREL 75MG TABLET PO SCH (09:28)
[2018-11-14] MEDS: INSULIN GLARGINE UD 100 UNITS/ML SYR SUBCUT SCH (11:16)
[2018-11-14] MEDS: CEFEPIME 1,000 MG in DEXTROSE 5% WATER 50 ML IV SCH (18:26)
[2018-11-14] MEDS ORDERED: NOREPINEPHRINE 32 MG in DEXT 5% WATER 468 ML IV PRN (18:45)
[2018-11-14] MEDS ORDERED: NOREPINEPHRINE 32 MG in DEXT 5% WATER 468 ML IV SCH (21:00)
[2018-11-15] VITALS (95 sets, daily range): BP systolic 48–184; BP diastolic 26–184
[2018-11-15] MEDS: IPRATROPIUM/ALBUTEROL 0.5-3(2.5)MG/3ML NEB HHN PRN (00:09)
[2018-11-15] MEDS: INSULIN LISPRO 100 UNITS/ML SUBCUT SCH ×4 (06:00→17:47)
[2018-11-15] MEDS: BLOOD SUGAR DIAGNOSTIC STRIP TEST SCH ×4 (06:12→17:47)
[2018-11-15 06:20] LABS: HEMATOCRIT. 30.4 % (36.0-48.0); HEMOGLOBIN. 10.1 g/dL (12.0-16.0); MEAN CORPUSCULAR HEMOGLOBIN 26.4 pg (28.0-32.0); MEAN PLATELET VOLUME 10.3 fl (7.4-10.4); PLATELET 71 x1000/uL (130-400); RED BLOOD CELL COUNT 3.84 mill/uL (4.2-5.4); RED CELL DISTRIBUTION WIDTH 21.3 % (11.6-14.6)
[2018-11-15 06:26] LABS: PHOSPHORUS 4.2 mg/dL (2.5-4.9)
[2018-11-15] MEDS: PANTOPRAZOLE SODIUM 40 MG/VIAL IV SCH (09:44)
[2018-11-15] MEDS: ENOXAPARIN 40MG/0.4ML SYR SUBCUT SCH (09:44)
[2018-11-15] MEDS: CLOPIDOGREL 75MG TABLET PO SCH (09:44)
[2018-11-15] MEDS: ASPIRIN 325MG TABLET PO SCH (09:45)
[2018-11-15] MEDS: INSULIN GLARGINE UD 100 UNITS/ML SYR SUBCUT SCH (09:46)
[2018-11-15 10:28] LABS: BG BASE EXCESS -4.1 mmol/L (-2.0-2.0); BG CARBOXYHEMOGLOBIN 0.3 % (0.5-1.5); BG DEOXYHEMOGLOBIN 2.4 % (0.0-5.0); BG FRACTION INSPIRED OXYGEN 45; BG HCO3 ACT 20.5 mmol/L (22.0-26.0); BG METHEMOGLOBIN 0.4 % (0.0-1.5); BG OXYGEN SATURATION 97.6 % (92.0-98.5); BG OXYHEMOGLOBIN 96.9 % (94.0-97.0); BG PCO2 35.8 mmHg (35.0-45.0); BG PH 7.376 (7.350-7.450); BG PO2 112.5 mmHg (75.0-100.0); BG PRESSURE SUPPORT 8; BG SAMPLE SITE RIGHT RADIAL; BG VENT MODE VENT - CPAP
[2018-11-15 10:41] LABS: PLATELET ESTIMATE DECREASED
[2018-11-15] MEDS: DOPAMINE 800MG PREMIX (DOUBLE) 250 ML IV PRN (15:28)
[2018-11-15] MEDS: CEFEPIME 1,000 MG in DEXTROSE 5% WATER 50 ML IV SCH (15:29)
[2018-11-15 16:18] LABS: BG CARBOXYHEMOGLOBIN 0.4 % (0.5-1.5); BG DEOXYHEMOGLOBIN 3.7 % (0.0-5.0); BG FRACTION INSPIRED OXYGEN 55; BG HCO3 ACT 22.5 mmol/L (22.0-26.0); BG METHEMOGLOBIN 0.1 % (0.0-1.5); BG OXYGEN SATURATION 96.3 % (92.0-98.5); BG OXYHEMOGLOBIN 95.8 % (94.0-97.0); BG PCO2 37.4 mmHg (35.0-45.0); BG PH 7.397 (7.350-7.450); BG PO2 82.3 mmHg (75.0-100.0); BG SAMPLE SITE RIGHT RADIAL; BG TIDAL VOLUME(mL) 500 mL; BG TOTAL HEMOGLOBIN 11.2 g/dL (12.0-18.0); BG VENT MODE VENT - A/C; BG VENT RATE 12 set
[2018-11-16] VITALS (100 sets, daily range): BP systolic 78–120; BP diastolic 43–73
[2018-11-16] MEDS: BLOOD SUGAR DIAGNOSTIC STRIP TEST SCH ×4 (05:45→18:53)
[2018-11-16] MEDS: INSULIN LISPRO 100 UNITS/ML SUBCUT SCH ×4 (05:48→18:07)
[2018-11-16 06:41] LABS: HEMATOCRIT. 28.3 % (36.0-48.0); HEMOGLOBIN. 9.3 g/dL (12.0-16.0); MEAN CORPUSCULAR HEMOGLOBIN 26.2 pg (28.0-32.0); MEAN CORPUSCULAR VOLUME 79.9 fL (81.0-99.0); MEAN PLATELET VOLUME 10.7 fl (7.4-10.4); PLATELET 84 x1000/uL (130-400); RED BLOOD CELL COUNT 3.55 mill/uL (4.2-5.4); RED CELL DISTRIBUTION WIDTH 21.5 % (11.6-14.6)
[2018-11-16 06:56] LABS: PHOSPHORUS 4.3 mg/dL (2.5-4.9)
[2018-11-16 07:56] LABS: BG BASE EXCESS -1.7 mmol/L (-2.0-2.0); BG CARBOXYHEMOGLOBIN 0.3 % (0.5-1.5); BG DEOXYHEMOGLOBIN 0.8 % (0.0-5.0); BG HCO3 ACT 21.8 mmol/L (22.0-26.0); BG METHEMOGLOBIN 0.2 % (0.0-1.5); BG OXYGEN SATURATION 99.2 % (92.0-98.5); BG OXYHEMOGLOBIN 98.7 % (94.0-97.0); BG PCO2 32.3 mmHg (35.0-45.0); BG PH 7.447 (7.350-7.450); BG PO2 213.6 mmHg (75.0-100.0); BG SAMPLE SITE RIGHT BRACHIAL; BG TIDAL VOLUME(mL) 500 mL; BG TOTAL HEMOGLOBIN 9.6 g/dL (12.0-18.0); BG VENT MODE VENT - A/C; BG VENT RATE 12 set
[2018-11-16] MEDS: IPRATROPIUM/ALBUTEROL 0.5-3(2.5)MG/3ML NEB HHN PRN ×4 (08:42→21:09)
[2018-11-16] MEDS: CLOPIDOGREL 75MG TABLET PO SCH (09:09)
[2018-11-16] MEDS: ENOXAPARIN 40MG/0.4ML SYR SUBCUT SCH (09:09)
[2018-11-16] MEDS: ASPIRIN 81MG TABLET PO SCH (09:09)
[2018-11-16] MEDS: PANTOPRAZOLE SODIUM 40 MG/VIAL IV SCH (09:09)
[2018-11-16] MEDS: INSULIN GLARGINE UD 100 UNITS/ML SYR SUBCUT SCH (09:10)
[2018-11-16 14:46] LABS: NUCLEATED RED BLOOD CELLS 1 /100 WBC
[2018-11-16 14:49] LABS: PLATELET ESTIMATE MARKEDLY DECREASED
[2018-11-16 20:37] LABS: INR 1.2; PROTHROMBIN TIME 12.4 sec (9.1-11.1)
[2018-11-17] VITALS (85 sets, daily range): BP systolic 86–138; BP diastolic 41–76
[2018-11-17] MEDS: BLOOD SUGAR DIAGNOSTIC STRIP TEST SCH ×5 (00:12→23:59)
[2018-11-17] MEDS: INSULIN LISPRO 100 UNITS/ML SUBCUT SCH ×5 (06:16→23:51)
[2018-11-17 08:10] LABS: BG BASE EXCESS -1.3 mmol/L (-2.0-2.0); BG CARBOXYHEMOGLOBIN 0.1 % (0.5-1.5); BG DEOXYHEMOGLOBIN 2.2 % (0.0-5.0); BG FRACTION INSPIRED OXYGEN 40; BG HCO3 ACT 22.8 mmol/L (22.0-26.0); BG METHEMOGLOBIN 0.5 % (0.0-1.5); BG OXYGEN SATURATION 97.8 % (92.0-98.5); BG OXYHEMOGLOBIN 97.2 % (94.0-97.0); BG PCO2 35.6 mmHg (35.0-45.0); BG PH 7.424 (7.350-7.450); BG PO2 111.2 mmHg (75.0-100.0); BG SAMPLE SITE RIGHT RADIAL; BG TIDAL VOLUME(mL) 500 mL; BG TOTAL HEMOGLOBIN 9.1 g/dL (12.0-18.0); BG VENT MODE VENT - A/C; BG VENT RATE 12 set
[2018-11-17] MEDS: IPRATROPIUM/ALBUTEROL 0.5-3(2.5)MG/3ML NEB HHN PRN ×4 (09:06→20:48)
[2018-11-17] MEDS: ENOXAPARIN 40MG/0.4ML SYR SUBCUT SCH (09:17)
[2018-11-17] MEDS: PANTOPRAZOLE SODIUM 40 MG/VIAL IV SCH (09:17)
[2018-11-17] MEDS: CLOPIDOGREL 75MG TABLET PO SCH (09:17)
[2018-11-17] MEDS: ASPIRIN 81MG TABLET PO SCH (09:17)
[2018-11-17 09:21] LABS: BASOPHILS % 0.2 % (0.0-2.0); EOSINOPHILS % 1.7 % (0.0-5.0); HEMATOCRIT. 26.2 % (36.0-48.0); HEMOGLOBIN. 8.7 g/dL (12.0-16.0); LYMPHOCYTES % 15.6 % (20.0-50.0); MEAN CORPUSCULAR HEMOGLOBIN 26.4 pg (28.0-32.0); MEAN CORPUSCULAR VOLUME 79.1 fL (81.0-99.0); MEAN PLATELET VOLUME 10.4 fl (7.4-10.4); MONOCYTES % 12.2 % (2.0-8.0); NEUTROPHILS % 70.3 % (40.0-76.0); PLATELET 106 x1000/uL (130-400); RED BLOOD CELL COUNT 3.31 mill/uL (4.2-5.4); RED CELL DISTRIBUTION WIDTH 21.4 % (11.6-14.6)
[2018-11-17 09:40] LABS: PHOSPHORUS 2.8 mg/dL (2.5-4.9)
[2018-11-17] MEDS: INSULIN GLARGINE UD 100 UNITS/ML SYR SUBCUT SCH (10:00)
[2018-11-17 21:50] LABS: BG BASE EXCESS -5.2 mmol/L (-2.0-2.0); BG CARBOXYHEMOGLOBIN 0.2 % (0.5-1.5); BG DEOXYHEMOGLOBIN 3.1 % (0.0-5.0); BG FRACTION INSPIRED OXYGEN 40; BG HCO3 ACT 19.1 mmol/L (22.0-26.0); BG METHEMOGLOBIN 0.1 % (0.0-1.5); BG OXYGEN SATURATION 96.9 % (92.0-98.5); BG OXYHEMOGLOBIN 96.6 % (94.0-97.0); BG PCO2 32.7 mmHg (35.0-45.0); BG PH 7.384 (7.350-7.450); BG PO2 94.1 mmHg (75.0-100.0); BG SAMPLE SITE RIGHT RADIAL; BG TOTAL HEMOGLOBIN 9.7 g/dL (12.0-18.0); BG VENT MODE NASAL CANNULA
[2018-11-17] MEDS: DOPAMINE 800MG PREMIX (DOUBLE) 250 ML IV PRN (23:52)
[2018-11-18] VITALS (131 sets, daily range): BP systolic 53–134; BP diastolic 24–89
[2018-11-18 05:53] LABS: BASOPHILS % 0.2 % (0.0-2.0); EOSINOPHILS % 0.9 % (0.0-5.0); HEMATOCRIT. 27.6 % (36.0-48.0); HEMOGLOBIN. 9.1 g/dL (12.0-16.0); LYMPHOCYTES % 16.8 % (20.0-50.0); MEAN CORPUSCULAR HEMOGLOBIN 26.6 pg (28.0-32.0); MEAN CORPUSCULAR VOLUME 80.7 fL (81.0-99.0); MEAN PLATELET VOLUME 10.3 fl (7.4-10.4); MONOCYTES % 11.2 % (2.0-8.0); NEUTROPHILS % 70.9 % (40.0-76.0); PLATELET 141 x1000/uL (130-400); RED BLOOD CELL COUNT 3.42 mill/uL (4.2-5.4); RED CELL DISTRIBUTION WIDTH 21.9 % (11.6-14.6)
[2018-11-18 06:09] LABS: PHOSPHORUS 3.9 mg/dL (2.5-4.9)
[2018-11-18] MEDS: BLOOD SUGAR DIAGNOSTIC STRIP TEST SCH ×3 (06:22→18:50)
[2018-11-18] MEDS: INSULIN LISPRO 100 UNITS/ML SUBCUT SCH ×3 (07:03→18:00)
[2018-11-18] MEDS ORDERED: NOREPINEPHRINE 32 MG in SODIUM CHLORIDE 0.9% 468 ML IV SCH (09:28)
[2018-11-18] MEDS: LINAGLIPTIN 5MG TABLET PO SCH (09:30)
[2018-11-18 09:45] LABS: BG BASE EXCESS -11.4 mmol/L (-2.0-2.0); BG CARBOXYHEMOGLOBIN 0.3 % (0.5-1.5); BG DEOXYHEMOGLOBIN 4.1 % (0.0-5.0); BG FRACTION INSPIRED OXYGEN 36; BG HCO3 ACT 12.7 mmol/L (22.0-26.0); BG METHEMOGLOBIN 0.3 % (0.0-1.5); BG OXYGEN SATURATION 95.9 % (92.0-98.5); BG OXYHEMOGLOBIN 95.3 % (94.0-97.0); BG PCO2 23.6 mmHg (35.0-45.0); BG PH 7.349 (7.350-7.450); BG PO2 86.7 mmHg (75.0-100.0); BG SAMPLE SITE RIGHT RADIAL; BG TOTAL HEMOGLOBIN 9.5 g/dL (12.0-18.0); BG VENT MODE NASAL CANNULA
[2018-11-18] MEDS: PANTOPRAZOLE SODIUM 40 MG/VIAL IV SCH (10:08)
[2018-11-18] MEDS: CLOPIDOGREL 75MG TABLET PO SCH (10:09)
[2018-11-18] MEDS: ENOXAPARIN 40MG/0.4ML SYR SUBCUT SCH (10:09)
[2018-11-18] MEDS: ASPIRIN 81MG TABLET PO SCH (10:09)
[2018-11-18] MEDS: INSULIN GLARGINE UD 100 UNITS/ML SYR SUBCUT SCH (10:54)
[2018-11-18] MEDS: DOPAMINE 800MG PREMIX (DOUBLE) 250 ML IV PRN (12:49)
[2018-11-18] MEDS: IPRATROPIUM/ALBUTEROL 0.5-3(2.5)MG/3ML NEB HHN PRN ×2 (14:46→17:23)
[2018-11-18 15:31] LABS: BG BASE EXCESS -17.8 mmol/L (-2.0-2.0); BG BILEVEL POS AIRWAY PRESSURE 15/5; BG CARBOXYHEMOGLOBIN 0.3 % (0.5-1.5); BG DEOXYHEMOGLOBIN 2.5 % (0.0-5.0); BG HCO3 ACT 8.2 mmol/L (22.0-26.0); BG METHEMOGLOBIN 0.1 % (0.0-1.5); BG OXYGEN SATURATION 97.5 % (92.0-98.5); BG OXYHEMOGLOBIN 97.1 % (94.0-97.0); BG PCO2 20.9 mmHg (35.0-45.0); BG PH 7.212 (7.350-7.450); BG PO2 129.8 mmHg (75.0-100.0); BG SAMPLE SITE RIGHT RADIAL; BG TOTAL HEMOGLOBIN 9.6 g/dL (12.0-18.0); BG VENT MODE MASK - BIPAP; BG VENT RATE 14 set
[2018-11-18] MEDS ORDERED: MEROPENEM 500 MG in SODIUM CHLORIDE 0.9% 50 ML IV SCH (16:00)
[2018-11-18] MEDS ORDERED: VANCOMYCIN 2,000 MG in DEXT 5% WATER 500 ML IV NR (18:00)
[2018-11-18] MEDS ORDERED: SODIUM BICARBONATE 8.4% 1 MEQ/ML 50ML SYR IV NR (20:00)
[2018-11-18] MEDS ORDERED: FLUCONAZOLE 200 MG/100ML BAG 100 ML IV SCH (21:00)
[2018-11-18 22:38] LABS: CLARITY URINE CLOUDY (CLEAR); COLOR URINE DARK YELLOW (YELLOW); KETONES URINE NEGATIVE (NEGATIVE); LEUKOCYTE ESTERASE URINE 3+ (NEGATIVE); NITRITE URINE NEGATIVE (NEGATIVE); OCCULT BLOOD URINE 3+ (NEGATIVE); PROTEIN URINE 4+ (NEGATIVE); SPECIFIC GRAVITY URINE 1.022 (1.005-1.030); UROBILINOGEN URINE 0.2 E.U./dL (0.2-1.0)
[2018-11-19] VITALS (47 sets, daily range): BP systolic 74–132; BP diastolic 33–75
[2018-11-19] MEDS: DOPAMINE 800MG PREMIX (DOUBLE) 250 ML IV PRN ×2 (00:01→08:34)
[2018-11-19] MEDS: BLOOD SUGAR DIAGNOSTIC STRIP TEST SCH ×2 (00:02→06:00)
[2018-11-19] MEDS: INSULIN LISPRO 100 UNITS/ML SUBCUT SCH ×2 (06:00)
[2018-11-19 06:23] LABS: BASOPHILS % 0.9 % (0.0-2.0); EOSINOPHILS % 0.1 % (0.0-5.0); HEMATOCRIT. 29.1 % (36.0-48.0); LYMPHOCYTES % 9.4 % (20.0-50.0); MEAN CORPUSCULAR HEMOGLOBIN 26.4 pg (28.0-32.0); MEAN CORPUSCULAR VOLUME 85.1 fL (81.0-99.0); MEAN PLATELET VOLUME 11.1 fl (7.4-10.4); MONOCYTES % 5.5 % (2.0-8.0); NEUTROPHILS % 84.1 % (40.0-76.0); PLATELET 189 x1000/uL (130-400); RED BLOOD CELL COUNT 3.42 mill/uL (4.2-5.4); RED CELL DISTRIBUTION WIDTH 22.7 % (11.6-14.6)
[2018-11-19 07:32] LABS: PHOSPHORUS 7.7 mg/dL (2.5-4.9)
[2018-11-19 07:51] LABS: BG BASE EXCESS -21.4 mmol/L (-2.0-2.0); BG BILEVEL POS AIRWAY PRESSURE 15/5; BG CARBOXYHEMOGLOBIN 0.3 % (0.5-1.5); BG DEOXYHEMOGLOBIN 1.4 % (0.0-5.0); BG HCO3 ACT 5.4 mmol/L (22.0-26.0); BG METHEMOGLOBIN 0.1 % (0.0-1.5); BG OXYGEN SATURATION 98.6 % (92.0-98.5); BG OXYHEMOGLOBIN 98.2 % (94.0-97.0); BG PCO2 15.8 mmHg (35.0-45.0); BG PO2 166.1 mmHg (75.0-100.0); BG SAMPLE SITE RIGHT RADIAL; BG TOTAL HEMOGLOBIN 9.8 g/dL (12.0-18.0); BG VENT MODE MASK - BIPAP; BG VENT RATE 14 set
[2018-11-19] MEDS: LINAGLIPTIN 5MG TABLET PO SCH (08:23)
[2018-11-19] MEDS: ENOXAPARIN 40MG/0.4ML SYR SUBCUT SCH (08:34)
[2018-11-19] MEDS: PANTOPRAZOLE SODIUM 40 MG/VIAL IV SCH (08:34)
== END 2018-11-19 09:52 | disposition expired | DRG 853 ==
LOC: ER 19:57 → ORIP 11-08 00:29 → EDBEDREQTM 11-08 00:32 → EDBEDREQSVC 11-08 00:32 → EDBEDREQ 11-08 00:32 → EDBEDREQDT 11-08 00:32 → CVICU 11-08 10:22
PROVIDERS: ADMIT Ophthalmology; ATTEND Ophthalmology
PROC: 5A1955Z Respiratory Ventilation, Greater than 96 Consecutive Hours (ICD-10-PCS; principal; 2018-11-08)
PROC: 027034Z Dilation of Coronary Artery, One Artery with Drug-eluting Intraluminal Device, Percutaneous Approach (ICD-10-PCS; 2018-11-08)
PROC: 5A02210 Assistance with Cardiac Output using Balloon Pump, Continuous (ICD-10-PCS; 2018-11-08)
PROC: B2111ZZ Fluoroscopy of Multiple Coronary Arteries using Low Osmolar Contrast (ICD-10-PCS; 2018-11-08)
PROC: 4A023N7 Measurement of Cardiac Sampling and Pressure, Left Heart, Percutaneous Approach (ICD-10-PCS; 2018-11-08)
PROC: 0BH17EZ Insertion of Endotracheal Airway into Trachea, Via Natural or Artificial Opening (ICD-10-PCS; 2018-11-08)
PROC: 02HV33Z Insertion of Infusion Device into Superior Vena Cava, Percutaneous Approach (ICD-10-PCS; 2018-11-08)
PROC: B548ZZA Ultrasonography of Superior Vena Cava, Guidance (ICD-10-PCS; 2018-11-08)
PROC: 06PY33Z Removal of Infusion Device from Lower Vein, Percutaneous Approach (ICD-10-PCS; 2018-11-08)
PROC: 06H033Z Insertion of Infusion Device into Inferior Vena Cava, Percutaneous Approach (ICD-10-PCS; 2018-11-08)
PROC: 5A1D70Z Performance of Urinary Filtration, Intermittent, Less than 6 Hours Per Day (ICD-10-PCS; 2018-11-10)
PROC: 5A1D70Z Performance of Urinary Filtration, Intermittent, Less than 6 Hours Per Day (ICD-10-PCS; 2018-11-14)
PROC: 5A1D70Z Performance of Urinary Filtration, Intermittent, Less than 6 Hours Per Day (ICD-10-PCS; 2018-11-19)
DX: A41.9 Sepsis, unspecified organism (principal); I50.23 Acute on chronic systolic (congestive) heart failure; N17.0 Acute kidney failure with tubular necrosis; N18.6 End stage renal disease; K72.00 Acute and subacute hepatic failure without coma; I21.4 Non-ST elevation (NSTEMI) myocardial infarction; R65.21 Severe sepsis with septic shock; J18.1 Lobar pneumonia, unspecified organism; J96.02 Acute respiratory failure with hypercapnia; J96.01 Acute respiratory failure with hypoxia; G92 Toxic encephalopathy; I13.2 Hypertensive heart and chronic kidney disease with heart failure and with stage 5 chronic kidney disease, or end stage renal disease; E44.0 Moderate protein-calorie malnutrition; K92.2 Gastrointestinal hemorrhage, unspecified; D68.9 Coagulation defect, unspecified; E87.4 Mixed disorder of acid-base balance; R57.0 Cardiogenic shock; D69.6 Thrombocytopenia, unspecified; I25.5 Ischemic cardiomyopathy; Z99.2 Dependence on renal dialysis; I27.20 Pulmonary hypertension, unspecified; D64.9 Anemia, unspecified; E11.21 Type 2 diabetes mellitus with diabetic nephropathy; E11.22 Type 2 diabetes mellitus with diabetic chronic kidney disease; E78.5 Hyperlipidemia, unspecified; I25.10 Atherosclerotic heart disease of native coronary artery without angina pectoris; Z51.5 Encounter for palliative care; M19.90 Unspecified osteoarthritis, unspecified site; Z66 Do not resuscitate; Z78.1 Physical restraint status; Z95.5 Presence of coronary angioplasty implant and graft; Z79.02 Long term (current) use of antithrombotics/antiplatelets; Z79.82 Long term (current) use of aspirin; Z82.49 Family history of ischemic heart disease and other diseases of the circulatory system; Z86.73 Personal history of transient ischemic attack (TIA), and cerebral infarction without residual deficits; I25.2 Old myocardial infarction; Z87.891 Personal history of nicotine dependence; Z88.8 Allergy status to other drugs, medicaments and biological substances; Z79.899 Other long term (current) drug therapy; Z68.33 Body mass index [BMI] 33.0-33.9, adult; Z98.49 Cataract extraction status, unspecified eye
CPT/HCPCS: 33967; 36415; 36556; 36569; 36600; 71045; 76770; 76937; 80048; 80061; 80076; 82330; 82375; 82805; 82962; 83036; 83605; 83735; 84100; 84443; 84484; 85027; 85347; 85379; 85384; 86850; 86900; 87070; 87077; 87106; 92928; 93005; 93306; 93308; 93458; 94002; 94003; 94640; 94660; 96365; 96375; 97162; 99291; A6261; C1725; C1726; C1752; C1769; C1874; C1887; C1893; C9113; J0330; J0456; J0461; J0610; J0690; J0692; J1250; J1265; J1450; J1644; J1650; J1815; J1956; J2060; J2185; J2250; J2270; J2370; J2405; J2543; J3370; J3480; J3490; J7030; J7040; J7050; J7060; J7620; L1830; Q9967; A4315